=== PATIENT | male | born 1930 | race Caucasian/White ===

== ENCOUNTER 2021-12-22 14:46 | Emergency (ER) | payer MEDICARE, BC ==
[2021-12-22 15:29] VITALS: BP 120/58; PULSE 64
== END 2021-12-22 16:40 | disposition home or self-care (01) ==
LOC: MW.ED 14:46
DX: T65.891A Toxic effect of other specified substances, accidental (unintentional), initial encounter (principal); T26.91XA Corrosion of right eye and adnexa, part unspecified, initial encounter; I10 Essential (primary) hypertension; E11.9 Type 2 diabetes mellitus without complications; F17.210 Nicotine dependence, cigarettes, uncomplicated; E66.9 Obesity, unspecified; Z68.30 Body mass index [BMI] 30.0-30.9, adult; Z79.899 Other long term (current) drug therapy; Z79.84 Long term (current) use of oral hypoglycemic drugs
CPT/HCPCS: 99283